=== PATIENT | male | born 1990 | race African-American/Black ===

== ENCOUNTER 2021-07-16 21:29 | Emergency (ER) | payer OTHER ==
[~2021-07-16] VITALS: Ht 190.5 cm; Wt 208.7 kg
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
--- NOTE | 2021-07-16 21:36 | NUR ---
DR PAVON AT BEDSIDE FOR MSE.
[2021-07-16] MEDS ORDERED: IPRATROPIUM BROMIDE 0.5 MG/2.5 ML NEBU NEB ONE (21:45)
[2021-07-16] MEDS ORDERED: predniSONE 10 MG TABLET PO ONE (21:45)
[2021-07-16] MEDS ORDERED: ALBUTEROL SULFATE 2.5 MG/3 ML NEBU NEB ONE (21:45)
[2021-07-16] MEDS ORDERED: diphenhydrAMINE 50 MG/1 ML VIAL IM ONE (21:45)
[2021-07-16] MEDS ORDERED: FAMOTIDINE 20 MG TABLET PO ONE (21:45)
--- NOTE | 2021-07-16 21:46 | NUR ---
RT AT BEDSIDE.
[2021-07-16] MEDS ORDERED: FAMOTIDINE 20 MG TABLET ONE (21:48)
[2021-07-16] MEDS ORDERED: predniSONE 20 MG TABLET ONE (21:48)
[2021-07-16] MEDS ORDERED: diphenhydrAMINE 50 MG/1 ML VIAL ONE (21:48)
--- NOTE | 2021-07-16 21:48 | NUR ---
XRAY AT BEDSIDE
[2021-07-16] MEDS ORDERED: ALBUTEROL SULFATE 2.5 MG/3 ML NEBU ONE (21:51)
[2021-07-16] MEDS ORDERED: IPRATROPIUM BROMIDE 0.5 MG/2.5 ML NEBU ONE (21:51)
[2021-07-16] MEDS ORDERED: ALBU8.5H8 IH (22:10)
[2021-07-16] MEDS ORDERED: FLUT1DIS28 INH (22:10)
[2021-07-16] MEDS ORDERED: PRED20TA PO (22:10)
--- NOTE | 2021-07-16 23:04 | NUR ---
Patient discharged to home in stable condition. Written and verbal after care instructions given. Patient verbalizes understanding of instructions. Stressed follow up or return to ER for worsening s/s. PT AMBULATED WITH STEADY GAIT. DENIES PAIN. NO SOB.
[2021-07-16 23:05] VITALS: BP 139/89
== END 2021-07-16 23:06 | disposition home or self-care (01) ==
LOC: ER 21:34
DX: J98.01 Acute bronchospasm (principal); J45.909 Unspecified asthma, uncomplicated; Z91.013 Allergy to seafood; Z79.899 Other long term (current) drug therapy
CPT/HCPCS: 71045; 94640; 96372; 99283; J1200; J7512; A4663; J3590